=== PATIENT | female | born 1950 | race Caucasian/White ===

== ENCOUNTER 2025-05-26 10:01 | Outpatient (AMB) | payer OTHER, SELFPAY ==
--- NOTE | 2025-05-26 10:03 | MHC.PC.OV ---
Vital Signs 05/26/25 10:05 Height 5 ft 4 in Weight 145 lb 8 oz BMI 25.0 BP 118/70 Pulse 89 Pulse Oximetry (%) 98 Oxygen Delivery Method Room Air Intake Visit Reasons: establish care Hotel Services Supervisor Required: No Accompanied by: Self / Same As Patient Allergies Penicillins Allergy (Mild, Verified 05/26/25 10:48) Unknown Medication List - Last Reconciled 05/26/25 by Sammie Matta PA-C aspirin 81 mg PO DAILY calcium carbonate-vitamin D3 600 mg-10 mcg (400 unit) (Calcium 600 with Vitamin D3) tabs PO ezetimibe (Zetia) 10 mg PO DAILY hydrochlorothiazide 12.5 mg PO DAILY lisinopril 5 mg PO DAILY rosuvastatin 40 mg PO DAILY sertraline 50 mg PO DAILY Tobacco use date assessed: 05/26/25 Fall risk assessment: No Falls in past year Last assessed Fall Risk: 05/26/25 Dental Screening Dental Screen Date: 05/26/25 Did you have a dental visit in the last 12 months?: Yes Did you have a dental problem in the last 6 months where you did not have access to dental care?: No Was dental information given to patient?: Patient has dentist HPI establish care HPI Details 75 year old female with past medial history of anxiety, hyperlipidemia, hypertension, liver cyst, osteopenia, vitamin D deficiency coming to the office for the first time. Presenting with a wellness check and management of chronic conditions. Managed with rosuvastatin 40 mg and Zetia 10 mg. HTN Managed with lisinopril 5 mg and hydrochlorothiazide 12.5 mg. Anxiety Managed with sertraline 50 mg, resumed after increased stress during holidays. mammogram: 2024 UTD DEXA: 2024 UTD eye exam: due referral placed colonoscopy: due next year 2025 PENDING SALE TO [facility] Surgical History H/O unilateral oophorectomy Family History Father Renal cancer Mother Heart disease Maternal Aunt Heart disease Social History Housing: Apartment Patient Tobacco Use Status: Never used Tobacco e-Cigarette/Vaping Use: Never Used Second Hand Smoke Exposure: No service: No Current occupational status: retired Questionnaire PHQ-9 Over the last 2 weeks, how often have you been bothered by any of the following problems? 1. Little interest or pleasure in doing things: not at all 2. Feeling down, depressed, or hopeless: not at all 3. Trouble falling or staying asleep, or sleeping too much: not at all 4. Feeling tired or having little energy: not at all 5. Poor appetite or overeating: not at all 6. Feeling bad about yourself - or that you are a failure or have let yourself or your family down: not at all 7. Trouble concentrating on things, such as reading the newspaper or watching television: not at all 8. Moving or speaking so slowly that other people could have noticed. Or the opposite - being so fidgety or restless that you have been moving around a lot more than usual: not at all 9. Thoughts that you would be better off or of hurting yourself in some way: not at all Total score: 0 Depression Screening Interpretation: Negative Depression Screening Done: Yes 05468 - PHQ-9 Billing: Yes Source: Developed by Drs. Frederic Valderrama, Elena Maldonado, Kyrie Arce and colleagues, with an educational jeremy from [employer]. Thrive Questionnaire Date Thrive assessed: 05/26/25 I am a: Patient What is your living situation today?: I have a steady place to live Within the past 12 months, did the food you bought not last and you didn't have the money to get more?: Never true Within the past 12 months, did you worry whether your food would run out before you got money to buy more?: Never true Do you have trouble paying for medicines?: No Do you have trouble getting transportation to medical appointments?: No Do you have trouble paying your heating and electricity bill?: No Do you have trouble taking care of your child, family member or friend?: No Do you have trouble with day-to-day activities such as bathing, preparing meals, shopping, managing finances, etc.?: No Are you currently unemployed and looking for a job?: No Are you interested in more education?: No Please select the resources that you would like help with: None Currently or been in a relationship where the following occur: No concerns reported THRIVE Score: 0 AUDIT C Alcohol Use Questionnaire (AUDIT-C) 1. How often do you have a drink containing alcohol?: 2-3 times a week 2. How many drinks containing alcohol do you have on a typical day when you are drinking?: 1 or 2 3. How often do you have six or more drinks on one occasion?: Never Total Score: 3 ESTEPHANIA-7 AMB Questionnaire ESTEPHANIA-7 Date ESTEPHANIA - 7 assessed: 05/26/25 Feeling nervous, anxious, or on edge: 0 = Not at all Not being able to stop or control worryin = Not at all Worrying too much about different things: 0 = Not at all Trouble relaxin = Not at all Being so restless that it is hard to sit still: 0 = Not at all Becoming easily annoyed or irritable: 0 = Not at all Feeling afraid as if something awful might happen: 0 = Not at all Total ESTEPHANIA-7 score (0-4 normal; 5-9 mild; 10-14 moderate; 15-21 severe): 0 Source: Developed by Drs. Frederic Valderrama, Elena Maldonado, Kyrie Arce and colleagues, with an educational jeremy from [employer]. ESTEPHANIA-7 Assessment Billing ESTEPHANIA-7 Assessment Tool: ESTEPHANIA-7 Assessment 20811 Review of Systems Const Denies body aches, Denies fatigue, Denies fever(s), Denies frequent falls, Denies headache(s) and Denies weakness Eyes Reports no additional complaints and Denies change in vision ENT Denies dysphagia, Denies dizziness, Denies facial pain, Denies headache(s), Denies nasal congestion and Denies odynophagia Card Denies chest pain, Denies syncope, Denies irregular heart rhythm, Denies leg edema, Denies lightheadedness and Denies dyspnea Resp Denies cough and Denies dyspnea GI Denies constipation, Denies dysphagia, Denies dyspepsia, Denies diarrhea, Denies nausea, Denies odynophagia and Denies vomiting Denies urinary frequency, Denies dysuria, Denies urinary hesitancy and Denies urinary urgency Musc Denies back pain and Denies myalgias Skin/Breast Reports system reviewed and no additional complaints, except as documented Neuro Denies dizziness, Denies syncope, Denies frequent falls, Denies headache(s) and Denies weakness Psych Reports no additional complaints Endo Denies fatigue Physical exam (Primary Care) Vital Signs: Last Vital Signs Pulse 89 05/26/25 10:05 BP 118/70 05/26/25 10:05 Pulse Ox 98 05/26/25 10:05 Oxygen Delivery Method Room Air 05/26/25 10:05 BMI result Body Mass Index 25.0 Tobacco/Smoking Status: Tobacco use Status Tobacco use date assessed 05/26/25 05/26/25 10:11 Patient Tobacco Use Status Never used Tobacco 05/26/25 10:11 e-Cigarette/Vaping Use Never Used 05/26/25 10:11 PHQ-9: PHQ-9 Score PHQ-9: Total score 0 05/26/25 13:13 Depression Screening Interpretation: Negative Thrive Assessment: Date of Thrive Assessment Date Thrive assessed 05/26/25 05/26/25 10:11 Currently or been in a relationship where the following occur: No concerns reported Const General: cooperative, healthy appearing, comfortable and no acute distress Orientation/consciousness: patient oriented x3 HENMT Head: Yes normocephalic Ears: hearing grossly normal bilaterally General nose exam: Normal external nose present Eyes General: appearance normal, both eyes and all related structures Conjunctivae: conjunctivae normal Neck Neck: Yes full ROM and Yes no lymphadenopathy Resp Effort & Inspection: normal respiratory effort Auscultation: clear to auscultation bilaterally, no crackles, no rales, no rhonchi and no wheezes Cardio Rate: regular rate Rhythm: regular rhythm Skin General skin exam: no rashes or lesions noted Neuro General: patient oriented x3 Gait exam (Neuro): Normal gait present Extrem General: Yes normal to inspection, Yes full ROM and No edema Psych Affect: normal affect Attitude: cooperative Insight: Good insight present (Psych) Judgement: Good judgement present (Psych) Coding Level of Care Code Est Pt Level 4 (06335) Diagnoses Hypercholesterolemia E78.00 Primary hypertension I10 Hypertension type: primary hypertension Vitamin D deficiency E55.9 Anxiety F41.9 Additional Codes ESTEPHANIA-7 Assessment Billing - ESTEPHANIA-7 Assessment Tool: ESTEPHANIA-7 Assessment 80877 ([id number]) PHQ-9 - 03574 - PHQ-9 Billing: Yes ([id number]) Assessment & Plan Assessment & Plan (1) Hypercholesterolemia: Code(s): E78.00 - Pure hypercholesterolemia, unspecified Category: Medical Plan: Avoid foods that are high in cholesterol such as red meat, fried foods, eggs and baked goods. Triglyceride goal of less than 150 and LDL goal of less than 100. Continue on Zetia 10 and rosuvastatin 40 (2) Hypertension: Code(s): I10 - Essential (primary) hypertension Category: Medical Qualifiers: Hypertension type: primary hypertension Qualified Code(s): I10 - Essential (primary) hypertension Plan: Continue on current blood pressure medication. Avoid salt intake and encourage healthy diet and regular exercise. (3) Vitamin D deficiency: Code(s): E55.9 - Vitamin D deficiency, unspecified Category: Medical Plan: Continue on vitamin-D supplementation and ordered for updated blood work. (4) Anxiety: Code(s): F41.9 - Anxiety disorder, unspecified Category: Medical Plan: Continue on sertraline 50 feels her symptoms are well managed at this time. Plan The patient will continue her current medication regimen for hyperlipidemia, including rosuvastatin 40 mg and Zetia 10 mg. If lipid levels remain uncontrolled, further adjustments may be considered. For hypertension, the patient will maintain lisinopril 5 mg and hydrochlorothiazide 12.5 mg. Anxiety management will continue with sertraline 50 mg, and the patient is advised to monitor stress levels, especially during holidays. Constipation will be managed with [id number] stool softeners, and the patient is encouraged to increase water and fiber intake. Vitamin D deficiency will be addressed with continued calcium 600 mg with vitamin D supplementation. Preventative care measures include considering a stool test for colon cancer screening as an alternative to colonoscopy, given the patient's age and previous negative results. This note was constructed using voice recognition software. While every effort has been made to ensure accuracy and forest pathologist, still areas may have been included sometimes these areas may affect the content or meeting of the given symptoms. Total time spent caring for the patient today was 30 minutes. This includes time spent before the visit reviewing the chart, time spent during the visit, and time spent after the visit and documentation. Patient was informed and verbally consented to the use of an ambient scribe for clinic note documentation during this visit. Orders: Referrals Optometry Referral Z00.00 - Encounter for general adult medical examination without abnormal findings Medications: New docusate sodium (Colace) 100 mg PO DAILY 30 caps 2RF
[2025-05-26 10:05] VITALS: BP 118/70; PULSE 89; O2SAT 98; BMI 25.0
--- OUTSIDE RECORDS SUMMARY | 2025-05-26 10:27 | XMS_ITS | Data Portability ---
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 *NO LOCAL PCP. [email or web address] Not available 10/17/2024 15:41:32 12/26/2024 12/26/2024 Established patient. PCP IS DR. TRIPP. Not available 12/27/2024 01:46:56 Plan of Treatment Reminders Order Date Submit Date Provider Last Modified By Organization Details Last Modified Time Details Appointments None recorded. Lab None recorded. Referral None recorded. Procedures None recorded. Surgeries None recorded. Imaging XR, chest, 2 view - ONSET IN 2024. SIGN WORSENING COUGH SINCE. LUNG SOUNDS: WHEEZING, AND CONGESTION . XRAY TO R/O PNEUMONIA. 2024 025 [facility], [facility], All Locations, [place], [address], 15:27:06 XR, foot, 3 or more view - INITIALLY THOUGHT SHE HAD PLANTAR FASCIITIS. NORMALLY WALKS 4 MILES PER DAY. STARTED STRETCHING EXERCISES. ICE/ IBUPROFEN. DOING THIS SINCE FRIDAY. ELEVATION. *NOT SLEEPING WELL R/T PAIN. NORMALLY SYMPTOMS LAST 1 WEEK. NOW FOOT IS FEELING WARM, POSTERIOR AND MEDIAL ARCH, MEDIAL MALLEOLUS. NEVER DIAGNOSED WITH GOUT. 2023 024 [facility], [facility], All Locations, [place], [address], 4 16:41:18 Medication Orders benzonatat e 200 mg capsule 2024 025 [facility], [address] [place] [address], [id number], 5 15:15:29 prednisone 10 mg tablet 2024 025 [facility], [address] [place] [address], [address], 5 15:15:26 albuterol sulfate HFA 90 mcg/actuat ion aerosol inhaler 2024 025 [facility], [address] [place] [address], [id number], 5 15:15:26 doxycyclin e hyclate 100 mg capsule 2024 025 [facility], [address] [place] [address], [address], 5 15:15:25 Zithromax Z-Bryan 250 mg tablet 2024 025 [facility], [address] [place] [address], [address], 5 14:08:32 Medrol (Bryan) 4 mg tablets in a dose pack 2024 025 [facility], [address] [place] [address], [id number], 5 14:08:28 doxycyclin e hyclate 100 mg capsule 2023 024 [facility], [address] [place], [address], 4 09:31:33 indomethac in 50 mg capsule 2023 024 [facility], [address] [place], [address], 4 12:02:38 Mucinex 1,200 mg tablet, extended release [address] [facility], [address] [place], [address], 4 09:31:39 benzonatat e 200 mg capsule 2018 019 [facility], [address] [place], [address], 13:49:15 Patient TargetsNo targets recorded. Patient Instructions Encounter Date Encounter Id Patient Instructions Last Modified By Organization Details Last Modified Time 12/07/2018 [id number] upper respirator y infection (cold): care instructions joy Not available 12/07/2018 16:38:22 History and exam consistent with viral upper respiratory infection. Lungs clear, vitals stable. Medication discussed. She will rest, stay hydrated, and will return if symptoms persist or new symptoms develop. She states understanding and agrees with this plan. [email or web address] Not available 12/07/2018 16:57:59 10/16/2024 [id number] Encouraged familia nt to establish with primary care locally. [email or web address] Not available 10/17/2024 16:03:33 Patient voiced understanding of diagnosis, and treatment plan. *Stressed to obtain further medical care for any worsening symptoms. Not available 10/16/2024 14:03:49 10/25/2024 [id number] We discussed you r recent foot infection and gout: - Your foot infection and gout have improved after taking antibiotics and pain medication. - Continue wearing orthotics in your shoes and ensure you have good sneakers to support your feet. - If you experience any issues with your right foot, please let me know. We discussed your overall health and primary care management: - You have a primary care physician in [place] who manages your health, including regular mammograms and cholesterol checks every six months. - Continue following up with your primary care physician in [place] for your scheduled appointments and any other health concerns. [email or web address] Not available 10/25/2024 09:43:37 11/22/2024 [id number] upper respirator y infection (cold): care instructions Not available 11/22/2024 08:05:37 We discussed you r recent illness: - Your symptoms are likely due to a viral infection, which typically lasts 7-10 days. However, since you haven't improved after a week, I will prescribe a Z-Bryan (antibiotic) at your request and a Medrol Dosepak (steroid) to help reduce inflammation and speed up your recovery. - Be aware that the Z-Bryan can cause arrhythmias, especially in individuals over 65. Monitor your heart rate closely and seek immediate medical attention if you notice any irregularities. - The Medrol Dosepak may cause increased hunger, thirst, and urination, but these side effects should subside once you complete the medication. - You can continue taking [id number]-mja-emivkpj medications like Mucinex, DayQuil, NyQuil, and cough drops to manage your symptoms. - It's important to stay active and avoid prolonged bed rest to prevent the development of pneumonia. Try to move around and take deep breaths regularly. Not available 11/22/2024 08:04:37 12/26/2024 [id number] pneumonia: care instructions [email or web address] Not available 12/26/2024 15:15:19 bronchitis: care instructions [email or web address] Not available 12/26/2024 14:36:16 Patient is encouraged to follow-up with PCP for all primary care, and chronic disease management. Patient is also encouraged to contact primary care for initial directive for acute illness management, and utilize the walk-in clinic, when the PCP is not available. Not available 12/27/2024 01:49:04 We discussed you r severe cough, shortness of breath, and possible pneumonia: - A chest x-ray was performed during your visit to evaluate for pneumonia. I will call you with the radiologist's report once it is available. - You received a breathing treatment during the visit, which helped improve your symptoms. This indicates that a rescue inhaler will likely be beneficial for you. - I prescribed the following medications to address your symptoms: - Antibiotic: To treat suspected pneumonia. Please start this medication as soon as possible. Your pharmacy has been instructed to expedite the prescription. - Steroids: To reduce inflammation and help with congestion. - Rescue inhaler (Albuterol): Use every 4-6 hours as needed, especially in the first few days. Instructions for use: - Remove the cap and place your mouth around the short end of the inhaler, creating a good seal. - Press the top of the inhaler while taking a deep breath in. Hold your breath for 3-5 seconds to allow the medication to reach your lungs. - Wait about a minute before taking a second puff. - Keep the inhaler with you, especially if you experience shortness of breath or severe coughing episodes. - Cough medication: To help manage your symptoms. - You are allergic to penicillin, so I prescribed an alternative antibiotic. We discussed precautions and follow-up: - You may be contagious, as community-acquired pneumonia can spread to others. Avoid close contact with others until you have been on antibiotics for at least 2-3 days and your symptoms improve. - If your symptoms worsen, such as increased shortness of breath, fever, chest pain, or flu-like symptoms, please seek immediate medical care. - I expect your symptoms to improve with this treatment plan. If you do not notice improvement or if you have concerns, please contact our office. Your prescriptions have been sent to [facility] pharmacy. Please pick them up and start them today. If you have any questions or need further assistance, let us know. [email or web address] Not available 12/27/2024 01:50:31 Reason for Referral None Reported. Results Created Date Observation Date Name Description Value Unit Range Abnormal Flag Note LastModifiedBy Organization Detail LastModifiedTime 10/16/20 24 10/16/2024 XR, foot, 3 or more view INDICA TION: M79.67 2 Pain in left foot. Foot pain for 4 days. TECHNI QUE: FOOT 3V (COMPL ETE) LEFT. COMPAR SHELBY: None FINDIN GS: Chroni c healed fractu re of the shaft of the fifth metata rsal bone. No acute fractu re or erosiv e change s are noted. Mild to modera te multif ocal joint space narrow ing/os teoart hrosis . Modera te planta r calcan eal spur. If patien t's sympto ms persis t or worsen , consid er MRI IMPRES PATRICK: See above discus patrick. Electr onical ly Signed By: Eddie Hobson D.O., Board Certif ied Radiol ogist Sign Date: [facility] All Locations, [place], [address], 10/16/2024 18:14:58 12/26/19 25 12/26/2024 XR, chest , 2 view INDICA TION: J20.9 Acute bronch itis, unspec ified. Progre ssive cough. Wheezi ng and conges tion. TECHNI QUE: CHEST 2V. COMPAR SHELBY: None FINDIN GS: Heart medias tinum and pulmon ayan vascul arity are normal . Acute parenc hymal infilt rates are not seen. There is minima l athero sclero sis of the thorac ic aortic arch. There are minima l bibasi lar infilt rates. Osseou s struct ures demons trates modera tely advanc ed degene rative disc space narrow ing degene rative spurri ng throug hout the thorac ic spine. IMPRES PATRICK: Minima l bibasi lar infilt rate relate d either scarri ng or atelec tasis and/or develo ping pneumo david. Note: The [employer] an Cancer Societ y, CMS and the [place] preven tative servic es task force now approv e CT low-do se chest screen ing in the follow ing patien ts: - Age 55-77 who curren tly smoke or who have quit within the last 15 years - Asympt omatic patien ts with a 30-pac k-year histor y of smokin g Electr onical ly Signed By: Oj alcaraz D.O., Board Certif ied Radiol ogist Sign Date: [email or web address] [place], [place] [address] All Locations, [place], [address], 12/26/2024 16:46:32 Result Notes Documentation Provider Name and Address Organization Details Recorded Time Xr, Foot, 3 Or More View : INDICATION: M79.672 Pain in left foot. Foot pain for 4 days. TECHNIQUE: FOOT 3V (COMPLETE) LEFT. COMPARISON: None FINDINGS: Chronic healed fracture of the shaft of the fifth metatarsal bone. No acute fracture or erosive changes are noted. Mild to moderate multifocal joint space narrowing/osteoarthrosis. Moderate plantar calcaneal spur. If patient's symptoms persist or worsen, consider MRI IMPRESSION: See above discussion. Electronically Signed By: Robin Hobson D.O., Board Certified Radiologist Sign Date: 16-OCT-24 [facility]ha [facility]avier [place] [facility], [facility] 10/16/2024 18:14:58 Xr, Chest, 2 View : INDICATION: J20.9 Acute bronchitis, unspecified. Progressive cough. Wheezing and congestion. TECHNIQUE: CHEST 2V. COMPARISON: None FINDINGS: Heart mediastinum and pulmonary vascularity are normal. Acute parenchymal infiltrates are not seen. There is minimal atherosclerosis of the thoracic aortic arch. There are minimal bibasilar infiltrates. Osseous structures demonstrates moderately advanced degenerative disc space narrowing degenerative spurring throughout the thoracic spine. IMPRESSION: Minimal bibasilar infiltrate related either scarring or atelectasis and/or developing pneumonia. Note: The [employer], CMS and the [place] preventative services task force now approve CT low-dose chest screening in the following patients: - Age 55-77 who currently smoke or who have quit within the last 15 years - Asymptomatic patients with a [id number]-[id number] history of smoking Electronically Signed By: Oj Khan D.O., Board Certified Radiologist Sign Date: 26-DEC-24 Grace xavier [place] - [facility], [facility] 12/26/2024 16:46:32 Procedures Surgical History Date Name Laterality Status Provider Name and Address Organization Details Recorded Time 5 Nebulizer treatment completed LOLITA Goncalves [address] [facility] [address], [place], [address], [facility] - [facility], [facility] 12/27/2024 01:49:17 4 Date of Last Mammogram completed [place] [facility] 10/25/2024 09:25:55 Colonoscopy completed [place] [facility] 10/25/2024 09:25:30 Mammogram Screening completed [place] [facility] [facility] 10/25/2024 09:26:05 Imaging Results None recorded. Procedure Notes None recorded. Medical Equipment None Reported. Allergies Allergen ID Allergen Name Allergen Category Reaction Reaction Severity Criticality Documentation Date Start Date Code Code System Note Provider Name and Address Organization Details Recorded Time 693254 Product containin g penicilli n (product) medicatio n respirato ry distress Not available Not available 12/07/2018 15804 8001 SNOMED Carmen Aicha [facility] 9 14:45:22 Medications Name Sig Start Date Stop Date Status Note LastModified by Organization Details LastModified Time prednisone 10 mg tablet 1 PO TID X 3 DAYS, BID X 3 DAYS. QD X 3 DAYS. 2024 active Not Available Not Available Not Avai lable doxycycline hyclate 100 mg capsule Take 1 capsule twice a day by oral route with meal(s) for 10 days. 2024 active Not Available Not Available Not Avai lable atorvastatin 10 mg tablet Take 1 tablet every day by oral route. active Not Available Not Available No t Available benzonatate 200 mg capsule Take 1 capsule 3 times a day by oral route as needed for 10 days. 2024 active Not Available Not Available Not Avai lable Medrol (Bryan) 4 mg tablets in a dose pack Take 1 dose pk by oral route for 6 days. 12/26 completed Not Available Not Available Not Available Zithromax Z-Bryan 250 mg tablet TAKE 2 TABLETS (500 MG) BY ORAL ROUTE ONCE DAILY FOR 1 DAY THEN 1 TABLET (250 MG) BY ORAL ROUTE ONCE DAILY FOR 4 DAYS 12/26 completed Not Available Not Available Not Available benzonatate 100 mg capsule 12/07 completed Not Available Not Available Not Available indomethacin 50 mg capsule Take 1 capsule 3 times a day by oral route with meal(s) for 10 days. 10/25 completed Not Available Not Available Not Available codeine 10 mg-guaifenes in 100 mg/5 mL oral liquid 12/07 completed Not Available Not Available Not Available lisinopril 5 mg tablet Take 1 tablet every day by oral route. active Not Available Not Available No t Available hydrochlorot hiazide 25 mg tablet Take 1 tablet every day by oral route for 100 days. active Not Available Not Available No t Available albuterol sulfate HFA 90 mcg/actuatio n aerosol inhaler 2 PUFFS Q 4-6 HOURS PRN RESCUE INHALER. 2024 active Not Available Not Available Not Avai lable sertraline 50 mg tablet Take 1 tablet every day by oral route for 90 days. active Not Available Not Available No t Available Tylenol 8 Hour 650 mg tablet,exten ded release Take 2 tablets every 8 hours by oral route. active Not Available Not Available No t Available rosuvastatin 10 mg tablet 10/16 completed Not Available Not Available Not Available rosuvastatin 40 mg tablet active Not Available Not Available Not Available aspirin active Not Available Not Avail able Not Available ibuprofen 10/16 completed Not Available Not Available Not Available Vitamin D active Not Available Not Kati ilable Not Available Mucinex 1,200 mg tablet, extended release Take 1 tablet every 12 hours by oral route. 10/25 completed Not Available Not Available Not Available Caltrate active Not Available Not Avai lable Not Available Vitals Date Recorded Body height Body mass index (BMI) Body weight Body temperature Heart rate Oxygen saturation Oxygen saturation in Arterial blood by Pulse oximetry Systolic And Diastolic Provider Name and Address Organization Details Last Updated DateTime 5 162.56 cm 24.5 kg/m2 91520.7 1 g 97.6 [degF] 96 /min 98 % 98 % 118/80 mm[Hg] Jimena Shea [place] - [facility], [facility] 5 07:33:32 Date Recorded Body weight Body mass index (BMI) Body height Body temperature Heart rate Respiratory rate Oxygen saturation Oxygen saturation in Arterial blood by Pulse oximetry Systolic And Diastolic Provider Name and Address Organization Details Last Updated DateTime 9 43103.7 6 g 26.1 kg/m2 162.56 cm 99.5 [degF] 83 /min 18 /min 98 % 98 % 120/78 mm[Hg] Carmen Holcomb [facility], [facility] 9 15:59:53 Date Recorded Body height Body mass index (BMI) Body weight Body temperature Heart rate Respiratory rate Oxygen saturation Oxygen saturation in Arterial blood by Pulse oximetry Systolic And Diastolic Provider Name and Address Organization Details Last Updated DateTime 5 162.56 cm 24.2 kg/m2 61075.8 1 g 98.7 [degF] 84 /min 18 /min 97 % 97 % 126/82 mm[Hg] Varsha Mg [facility], [facility] 5 14:12:54 Date Recorded Body weight Body mass index (BMI) Body height Body temperature Heart rate Respiratory rate Oxygen saturation Oxygen saturation in Arterial blood by Pulse oximetry Systolic And Diastolic Provider Name and Address Organization Details Last Updated DateTime 4 70619.5 9 g 27.1 kg/m2 162.56 cm 98.3 [degF] 84 /min 16 /min 98 % 98 % 128/84 mm[Hg] Varsha Mg [facility], [facility] 4 13:51:11 Date Recorded Body height Provider Name an d Address Organization Details Last Updated DateTime 10/25/2024 162.56 cm Carissa Gruber [facility], [facility] 10/25/2024 09:25:10 Date Recorded Respiratory rate Body mass index (BMI) Body weight Body temperature Heart rate Oxygen saturation Oxygen saturation in Arterial blood by Pulse oximetry Systolic And Diastolic Provider Name and Address Organization Details Last Updated DateTime 4 16 /min 24.4 kg/m2 67794.1 2 g 98 [degF] 66 /min 96 % 96 % 122/80 mm[Hg] Sherrill Shirley [facility], [facility] 4 09:31:06 Social History Question Answer Notes LastModified by Organizat ion Details LastModified Time Tobacco Smoking Status Never Smoker Carmen xavier [facility], [facility] 12/07/2018 14:51:07 Do You Have An Advance Directive? Yes [email or web address] Information not available 10/25/2024 Is Your Home Air Conditioned? Yes [email or web address] Information not available 10/25/2024 Do You Wear A Helmet When Biking? No Information not available 10/25/2024 Is Blood Transfusion Acceptable In An Emergency? Yes [email or web address] Information not available 10/25/2024 What Type Of Diet Are You Following? REGULAR [email or web address] Information not available 10/25/2024 Which Illicit Or Recreational Drugs Have You Used? NA Information not available 10/25/2024 What Is The Highest Grade Or Level Of School You Have Completed Or The Highest Degree You Have Received? [id number] [email or web address] Information not available 10/25/2024 Have There Been Any Changes To Your Family Or Social Situation? No [email or web address] Information not available 10/25/2024 Are There Any Guns Present In Your Home? No Information not available 10/25/2024 Where Do You Live? 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 Yes [email or web address] Information not available 10/25/2024 What Was The Date Of Your Most Recent Tobacco Screening? 10/25/2024 Information not available 10/25/2024 What Is Your Relationship Status? Domestic Partner [email or web address] Information not available 12/26/2024 Are You Sexually Active? Yes [email or web address] Information not available 10/25/2024 Do You Have Smoke And Carbon Monoxide Detectors In Your Home? Yes [email or web address] Information not available 10/25/2024 Are You Passively Exposed To Smoke? No [email or web address] Information not available 10/25/2024 Are There Any Smokers In Your House? No [email or web address] Information not available 10/25/2024 Do You Have Any Dietary Restrictions? No [email or web address] Information not available 10/25/2024 Sex: Female Functional Status Question Answer Note LastModified by Organizat ion Details LastModified Time What is your level of alcohol consumption? Moderate [email or web address] Information not available 10/25/2024 Do you or have you ever used smokeless tobacco? Never used smokeless tobacco [email or web address] Information not available 10/25/2024 Are you currently employed? No [email or web address] Information not available 10/25/2024 Have you been exposed to chemicals or toxins? No [email or web address] Information not available 10/25/2024 Do you have transportation difficulties? No [email or web address] Information not available 10/25/2024 Are you able to care for yourself? Yes [email or web address] Information n ot available 10/25/2024 What is your exercise level? Moderate [email or web address] Information not available 10/25/2024 Mental Status None recorded. Family History Relationship Description Onset Age of this Age Resolved Age Notes LastModified by Organization Details LastModified Time Unspecified Relation Malignant neoplastic disease [email or web address] Not available 2024 13:33:44 Unspecified Relation Heart disease [email or web address] Not available 2018 14:50:59 Mother Alzheimer's disease [email or web address] Not available 10/25 09:25:41 Mother Hypertensive disorder [email or web address] Not available 10/25 09:25:41 Mother Heart disease [email or web address] Not available 10/25 09:25:41 Medical History Condition Response Cancer (location) N Other N Gout N Thyroid Disease N Kidney Stones N Measles/Mumps N Emphysema/COPD N Sexually Transmitted Disease N Depression N Prostate Problems N Vascular Disease N Rash/Skin Condition N Amputation (location) N Parkinson's N Paralysis N Headaches/Migraines N Cardiac Pacemaker/defibrillator N Nerve Damage / Neuropathy N Arthritis N Sleep disorder/Insomnia N Heart disease / Heart Attack N Crohn's Disease N HIV/AIDS N Stroke/TIA N Colon Problems N High Cholesterol Y Serious Injuries N Kidney Disease N Memory Loss/Alzheimer's N Gallbladder disease N High blood pressure Y Congestive heart failure N Falls N Alcohol Overuse N Blood Thinner Treatment N Hormone Replacement N Nervous Breakdown N Fuentes's Esophagus N Anemia N Urinary Problems N Colon Polyps N Gastritis N Hospitalizations (other than operations) N Back pain N Diabetes N Rheumatic Fever N Bleeding Disorder N Cardiac Arrhythmias /irregular heart rat e N Osteopenia/Osteoporosis N Anxiety/Stress N Asthma N Vision Problems N Erectile / Sexual Dysfunction N Ostomies (location) N Seizures N Jaundice N Sleep Apnea N Hepatitis N Cirrhosis N GERD/Ulcer N Chicken Pox N Allergies (other than meds) N Gynecological History Statement/Question Response Menses Monthly N STIs/STDs N If Post Menopausal, Age at Menopause Na Date of Last Mammogram 2024 Age at First Child 23 Obstetrics History GPAL:G 0 P 0 0 0 0 Immunizations Vaccine Type Date Status Note Provider Nam e and Address Organization Details Recorded Time COVID-19, mRNA, LNP-S, PF, 30 mcg/0.3 mL dose 01/10/2021 completed Varsha xavier [facility], [facility] 10/16/2024 13:57:46 COVID-19, mRNA, LNP-S, PF, 30 mcg/0.3 mL dose 01/31/2021 completed Varsha xavier [facility], [facility] 10/16/2024 13:57:46 COVID-19, mRNA, LNP-S, PF, 30 mcg/0.3 mL dose, peggy-sucrose 02/21/2022 completed Varsha xavier [facility], [facility] 10/16/2024 13:57:46 Past Encounters Encounter ID Performer Location Encounter Start Date Encounter Closed Date Diagnosis/Indication Diagnosis SNOMED-CT Code Diagnosis ICD10 Code Diagnosis Note [id number] LOLITA Martines [facility] [address] [place] [address] 12/07/2018 14:35:00 12/07/2018 18:45:28 Upper respiratory infection [id number] J06.9 Diarrhea [id number] R19.7 Food related; states several other people that ate with her last night also have diarrhea today [id number] LOLITA Goncalves [facility] [address] [place] [address] 10/16/2024 13:12:35 10/17/2024 20:38:44 Pain in left foot [id number] M79.672 Acute. Incomplete control. Initial treatment. Xray LEFT FOOT: FINDINGS: Chronic healed fracture of the shaft of the fifth metatarsal bone. No acute fracture or erosive changes are noted. Mild to moderate multifocal joint space narrowing/ osteoarthr osis. Moderate plantar calcaneal spur. If patient's symptoms persist or worsen, consider MRI IMPRESSION : See above discussion . Rx for INDOMETHAC IN. Follow-up with PCP, or if can't get in with PCP, at the walk-in if no better or ER if any worse, or any red flag symptoms. Patient voiced understand ing and agreement with treatment plan. Cellulitis of left foot [id number] L03.116 Acute. Incomplete control. Initial treatment. *TREAT A CELLULITIS VS. PLANTAR FASCIITIS, VS GOUT/ ARTHRITIS. Rx for a oral antibiotic . Encouraged good po fluid intake. Follow-up at the walk-in if no better or ER if any worse, or any red flag symptoms. Patient voiced understand ing and agreement with treatment plan. *CONTACTED PT 10/17/24 AT 3:45 PM, PT DOING SIGNFICANT LY BETTER. [id number] MD PAIGE Miguel [facility] [address] [place] [address] 10/25/2024 09:19:11 10/25/2024 09:43:38 Infection of foot [id number] L08.9 - Patient presented with a left foot infection, which was treated with antibiotic s and pain medication .- The infection has resolved, and the patient reports significan t improvemen t with the ability to walk without pain.- Educated the patient on the importance of completing the full course of antibiotic s and monitoring for any signs of recurrence , such as redness, swelling, or increased pain.- Advised to maintain good foot hygiene and wear appropriat e footwear to prevent future infections . Gout [id number] M10.9 - Patient experience d an acute gout flare in the left foot, characteri zed by swelling, redness, and heat.- X-ray revealed an old fracture in the toe, which the patient was previously unaware of.- The gout flare has resolved following treatment with pain medication .- Educated the patient on dietary modificati ons to prevent future gout flares, including reducing intake of purine-april h foods and alcohol.- Advised to stay hydrated and maintain a healthy weight.- Recommende d follow-up with primary care physician in [facility] for ongoing management and monitoring of gout. [id number] MD PAIGE Silva [facility] [address] [place] [address] 11/22/2024 07:13:19 11/22/2024 13:35:13 Acute upper respiratory infection [id number] J06.9 - Symptoms include scratchy throat, rhinorrhea , sneezing, and a productive cough that worsens when supine. Patient also reports headache and significan t fatigue.- No fever reported. No recent exposure to sick individual s, but recent travel via airplane could be a contributi ng factor.- Physical examinatio n reveals coarse breath sounds without rhonchi, indicating inflammati on.- Discussed the viral nature of most upper respirator y infections , which typically resolve within 7 to 10 days.- Educated patient on the importance of ambulation to prevent complicati ons such as pneumonia. - Due to persistent symptoms and patient discomfort , prescribed Azithromyc in (Z-Bryan) and a Medrol Dosepak (methylpre dnisolone) to address potential bacterial superinfec tion and reduce inflammati on.- Advised patient of potential side effects of the Medrol Dosepak, including increased hunger, thirst, and urination, which should subside after completion of the medication .- Instructed patient to monitor for any signs of arrhythmia due to the Z-Bryan, especially given her age, and to seek immediate medical attention if such symptoms occur.- Patient to continue over-the-c ounter medication s (Mucinex, DayQuil, NyQuil, cough drops) as needed for symptomati c relief.- Prescripti ons sent to [facility] pharmacy.- Patient understand s and agrees with the treatment plan. [id number] LOLITA Goncalves [facility] [address] [place] [address] 12/26/2024 13:26:45 12/27/2024 06:35:15 Acute bronchitis [id number] J20.9 ACUTE. INCOMPLETE CONTROL. INITIAL EVALUATION . ORDER FOR A STAT CHEST XRAY: FINDINGS: Heart mediastinu m and pulmonary vascularit y are normal. Acute parenchyma l infiltrate s are not seen. There is minimal atheroscle rosis of the thoracic aortic arch. There are minimal bibasilar infiltrate s. Osseous structures demonstrat es moderately advanced degenerati ve disc space narrowing degenerati ve spurring throughout the thoracic spine. IMPRESSION : Minimal bibasilar infiltrate related either scarring or atelectasi s and/or developing pneumonia. Pneumonia [id number] J18. 9 Acute. Worsening. Subsequent treatment. *UNDIAGNOS ED NEW PROBLEM WITH UNCERTAIN PROGNOSIS. Rx for a oral antibiotic and benzonatat e as needed for cough. Rx for a steroid taper. Rx for a rescue inhaler. Encouraged good po fluid intake. Follow-up with PCP, or if can't get in with PCP, at the walk-in if no better or ER if any worse, or any red flag symptoms. Patient voiced understand ing and agreement with treatment plan. Health Concerns Section Related Observation LastModified by Organization Detai ls LastModified Time None Recorded Concern Status LastModified by Organization Details LastModified Time None Recorded Advance Directives Directive Y: Payers Insurance Date Sequence Insurance Name Policy Number Policy Enriquez Covered Member ID Enriquez Member ID Guarantor Name 03/02/2025 1 [facility] (MEDICARE REPLACEMENT/ ADVANTAGE - PPO) [id number] Norma Ladi [facility] [id number] Norma [facility] 10/22/2024 3 [facility] (MEDICARE REPLACEMENT/ ADVANTAGE - HMO) Norma Ladi Lorenzana [id number] Norma [facility] 10/25/2024 2 [place] Norma Ladi Lorenzana [id number] Norma Lorenzana 12/12/2024 2 [employer] (MEDICARE SUPPLEMENT) Norma [facility] [id number] Norma [facility] Notes Date Note Type Note Provider Name and Address Organization Details Recorded Time 12/07/2018 text/html Patient presents to the office with concern for 7 days of dry cough and headache. She also had a few episodes of diarrhea yesterday and today, but she thinks that is from a potluck she attended yesterday. Has been taking nyquil and dayquil for coughing. No fever at home, has had a few chills. Her grandson has been sick as well. Sarahi Rivera, RE[employer]IGERATION LEAD [address], [place], [address], [facility] - [facility], [facility] 12/07/2018 16:58:57 10/16/2024 text/html Lower Body PainReported bypatient.Reason for visit:acute complaint; INITIALLY THOUGHT SHE HAD PLANTAR FASCIITIS. NORMALLY WALKS 4 MILES PER DAY. STARTED STRETCHING EXERCISES. ICE/ IBUPROFEN. DOING THIS SINCE FRIDAY. ELEVATION. *NOT SLEEPING WELL R/T PAIN. NORMALLY SYMPTOMS LAST 1 WEEK. NOW FOOT IS FEELING WARM. Location:L foot Quality:dull/achy Severity:unchanged Duration:constant Onset/Timing:gradua l Context:NO ACUTE INJURY, HX OF PLANTAR FASCIITIS SYMPTOMS IN THE PAST. Alleviating Factors:nothing Aggravating Factors:movement/po sitioning;walking;w eight bearing Associated Symptoms:denies fever; denies weak limbs; denies numbness of the legs/feet; denies tingling New Patient. Pt c/o left foot pain x's 4 days. Pt reports swelling, and states this is red, hot and tender to the touch. Pt has used RICE, voltaren gel, cbd cream, tylenol, ibuprofen. Pt states she has a hx of plantar fasciitis. Pt googled sxs of gout but states as she only drinks wine LOLITA Goncalves [address], [place], [address], [facility] 10/17/2024 16:04:07 10/25/2024 text/html The patient is a 74-year-old female presenting for follow-up after a recent episode of left foot pain and swelling. The patient reports a recent episode of left foot pain and swelling that began on a Friday morning, rendering her unable to walk. She initially attributed the symptoms to plantar fasciitis, a condition she experiences every other year while in [place], but noted that this episode was unusual due to the significant swelling, erythema, and heat. She attempted self-treatment with exercises and ibuprofen, but her friends advised her to seek medical attention due to the severity of the swelling and erythema. Upon evaluation, she was diagnosed with an infection, gout, and a heel spur. An X-ray revealed an old fracture in her toe, which she was previously unaware of. She was prescribed antibiotics and pain medication, which she reports resolved her symptoms by the next day, allowing her to resume walking. She experienced bloating and nausea as side effects from the medication, but these symptoms resolved after completing the course. The patient is currently asymptomatic and has resumed her routine of walking 2 miles daily. She is using orthotics and has ordered new sneakers to ensure proper foot support. She spends 6 months of the year in [place] and the remaining time in [place], where she has a primary care physician. She has a mammogram scheduled and undergoes cholesterol checks every 6 months. Omkar Tripp MD [address], [place], [address], [facility], [facility] 10/25/2024 09:46:34 11/22/2024 text/html The patient is a 74-year-old female with a history of HTN, HLD, and depression, presenting with URI symptoms. The patient reports URI symptoms that began after returning from a trip to [place] on Friday. Initial symptoms included a scratchy throat, which progressed to rhinorrhea, sneezing, and a cough. The cough is described as deep and is exacerbated when lying down. She has been taking Mucinex, DayQuil, NyQuil, and cough drops without improvement. She denies fever, but notes myalgias and cephalalgia today. She reports significant fatigue, stating she has been sleeping excessively and feels miserable. She has not been tested for influenza or COVID-19 and denies known sick contacts, but suspects she may have contracted the illness during air travel. She has a known allergy to penicillin and recalls a previous similar illness that responded well to a Z-Bryan. She is currently taking vitamin D, calcitrate, aspirin, Tylenol, atorvastatin, sertraline, hydrochlorothiazide , and lisinopril. She denies any cardiac history. RICARDO FLEMING [address], [place], [address], [facility], [facility] 11/22/2024 08:05:55 12/26/2024 text/html Established patient. Pt c/o cough since 11/22/24. Pt states she was seen by Nitza 11/22/24 and told she had a viral infection. [facility] did send a zpak and MDP. However, pt states she did not know that was being sent and never took meds. Pt has used multiple cough/cold meds and states nothing helps. I'm using a new note-taking tool today, which will record our visit, take notes for me, and help me focus more on you while we're talking. Is that ok with you! The patient is a 74-year-old female presenting with a persistent cough. The patient was seen on November 22 for a cough and was advised that it was viral and would run its course. She was instructed to continue taking Mucinex, Dayquil, and Nyquil, which she has been doing. However, the cough has worsened since then. She denies any history of lung problems, fever, or chills since the last visit. She reports feeling extremely fatigued due to the constant coughing and has no energy. She has been trying to walk, but the cough has prevented her from doing so for the past three days. She denies rhinorrhea or sinus congestion, but notes that she has to blow her nose when she coughs. She reports some post-nasal drainage, particularly in the morning. She also reports dyspnea, but denies chest pain or pressure, cephalalgia, or dizziness. She is allergic to penicillin. Sabina Lomax, REFRIGERATION LEAD [address], [place], [address], [facility] - [facility], [facility] 12/27/2024 01:51:56 OBGyn Episode No OBEpisode recorded.
== END 2025-05-26 11:11 | disposition home or self-care (01) ==
LOC: HO.HMCH 10:01
DX: E78.00 Pure hypercholesterolemia, unspecified (principal); I10 Essential (primary) hypertension; E55.9 Vitamin D deficiency, unspecified; F41.9 Anxiety disorder, unspecified

== ENCOUNTER → 2025-05-26 10:01 | Outpatient (BNVA) | payer OTHER, SELFPAY | DX: I10 Essential (primary) hypertension (principal); F41.9 Anxiety disorder, unspecified; E78.00 Pure hypercholesterolemia, unspecified; E55.9 Vitamin D deficiency, unspecified; Z79.899 Other long term (current) drug therapy | CPT/HCPCS: 96127 ==

== ENCOUNTER 2025-07-06 12:49 | Outpatient (AMB) | payer OTHER, SELFPAY ==
--- NOTE | 2025-07-06 13:07 | MHC.PC.OV ---
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: No Accompanied by: Self / Same As Patient Allergies Penicillins Allergy (Mild, Verified 07/06/25 13:15) Unknown Medication List - Last Reconciled 07/06/25 by Sammie Matta PA-C aspirin 81 mg PO DAILY bromfenac 0.07% (Prolensa) drps ophthalmic (eye) calcium carbonate-vitamin D3 600 mg-10 mcg (400 unit) (Calcium 600 with Vitamin D3) tabs PO docusate sodium (Colace) 100 mg PO DAILY ezetimibe (Zetia) 10 mg PO DAILY hydrochlorothiazide 12.5 mg PO DAILY lisinopril 5 mg PO DAILY rosuvastatin 40 mg PO DAILY sertraline 50 mg PO DAILY Tobacco use date assessed: 07/06/25 Fall risk assessment: No Falls in past year Last assessed Fall Risk: 07/06/25 Dental Screening Dental Screen Date: 07/06/25 Did you have a dental visit in the last 12 months?: No Did you have a dental problem in the last 6 months where you did not have access to dental care?: No Was dental information given to patient?: Patient has dentist HPI cataract Surgery 07/25 Dr Abarca-tamra comm HPI Details 75-year-old female with past medical history of hypercholesterolemia, hypertension, anxiety last seen 05/2025 coming in for preoperative visit. She is scheduled to have cataract surgery on the left eye with 07/25/2025 Hypertension: Blood pressure is well controlled at this time on hydrochlorothiazide and lisinopril Patient has no history of CVA, HI, CHF or DM. She has had surgery and anesthesia in the past without complications. [facility] Surgical History H/O unilateral oophorectomy Family History Father Renal cancer Mother Heart disease Maternal Aunt Heart disease Social History Housing: Apartment Patient Tobacco Use Status: Never used Tobacco e-Cigarette/Vaping Use: Never Used Second Hand Smoke Exposure: No service: No Current occupational status: retired Cognitive needs: No Hearing needs: No Vision needs: No Questionnaire PHQ-9 Over the last 2 weeks, how often have you been bothered by any of the following problems? 1. Little interest or pleasure in doing things: not at all 2. Feeling down, depressed, or hopeless: not at all 3. Trouble falling or staying asleep, or sleeping too much: not at all 4. Feeling tired or having little energy: not at all 5. Poor appetite or overeating: not at all 6. Feeling bad about yourself - or that you are a failure or have let yourself or your family down: not at all 7. Trouble concentrating on things, such as reading the newspaper or watching television: not at all 8. Moving or speaking so slowly that other people could have noticed. Or the opposite - being so fidgety or restless that you have been moving around a lot more than usual: not at all 9. Thoughts that you would be better off or of hurting yourself in some way: not at all Total score: 0 Depression Screening Interpretation: Negative Depression Screening Done: Yes Source: Developed by Drs. Frederic Valderrama, Elena Maldonado, Kyrie Arce and colleagues, with an educational jeremy from [employer]. Thrive Questionnaire Date Thrive assessed: 05/26/25 I am a: Patient What is your living situation today?: I have a steady place to live Within the past 12 months, did the food you bought not last and you didn't have the money to get more?: Never true Within the past 12 months, did you worry whether your food would run out before you got money to buy more?: Never true Do you have trouble paying for medicines?: No Do you have trouble getting transportation to medical appointments?: No Do you have trouble paying your heating and electricity bill?: No Do you have trouble taking care of your child, family member or friend?: No Do you have trouble with day-to-day activities such as bathing, preparing meals, shopping, managing finances, etc.?: No Are you currently unemployed and looking for a job?: No Are you interested in more education?: No Please select the resources that you would like help with: None Currently or been in a relationship where the following occur: No concerns reported THRIVE Score: 0 AUDIT C Alcohol Use Questionnaire (AUDIT-C) 1. How often do you have a drink containing alcohol?: 2-3 times a week 2. How many drinks containing alcohol do you have on a typical day when you are drinking?: 1 or 2 3. How often do you have six or more drinks on one occasion?: Never Total Score: 3 ESTEPHANIA-7 AMB Questionnaire ESTEPHANIA-7 Date ESTEPHANIA - 7 assessed: 05/26/25 Feeling nervous, anxious, or on edge: 0 = Not at all Not being able to stop or control worryin = Not at all Worrying too much about different things: 0 = Not at all Trouble relaxin = Not at all Being so restless that it is hard to sit still: 0 = Not at all Becoming easily annoyed or irritable: 0 = Not at all Feeling afraid as if something awful might happen: 0 = Not at all Total ESTEPHANIA-7 score (0-4 normal; 5-9 mild; 10-14 moderate; 15-21 severe): 0 Source: Developed by Drs. Frederic Valderrama, Elena Maldonado, Kyrie Arce and colleagues, with an educational jeremy from [employer]. Review of Systems Const Denies body aches, Denies chills, Denies fever(s), Denies headache(s) and Denies poor appetite Eyes Reports no additional complaints ENT Denies dysphagia, Denies dizziness, Denies headache(s) and Denies odynophagia Card Denies chest pain, Denies syncope, Denies edema, Denies irregular heart rhythm, Denies lightheadedness and Denies dyspnea Resp Denies cough and Denies dyspnea GI Denies dysphagia, Denies diarrhea, Denies nausea, Denies odynophagia and Denies vomiting Reports no additional complaints Musc Reports no additional complaints and Denies abnormal gait Skin/Breast Reports system reviewed and no additional complaints, except as documented Neuro Denies abnormal gait, Denies dizziness, Denies syncope and Denies headache(s) Psych Reports no additional complaints Physical exam (Primary Care) Vital Signs: Last Vital Signs Temp 97.1 F 07/06/25 13:09 Pulse 92 07/06/25 13:09 BP 122/84 07/06/25 13:09 Pulse Ox 92 07/06/25 13:09 Oxygen Delivery Method Room Air 07/06/25 13:09 BMI result Body Mass Index 24.5 Tobacco/Smoking Status: Tobacco use Status Tobacco use date assessed 07/06/25 07/06/25 13:15 Patient Tobacco Use Status Never used Tobacco 07/06/25 13:15 e-Cigarette/Vaping Use Never Used 07/06/25 13:15 PHQ-9: PHQ-9 Score PHQ-9: Total score 0 07/06/25 13:16 Depression Screening Interpretation: Negative Thrive Assessment: Date of Thrive Assessment Date Thrive assessed 05/26/25 07/06/25 13:15 Currently or been in a relationship where the following occur: No concerns reported Const General: cooperative, healthy appearing, comfortable and no acute distress Orientation/consciousness: patient oriented x3 HENMT Head: Yes normocephalic Ears: hearing grossly normal bilaterally General nose exam: Normal external nose present Eyes General: appearance normal, both eyes and all related structures Conjunctivae: conjunctivae normal Neck Neck: Yes full ROM and Yes no lymphadenopathy Resp Effort & Inspection: normal respiratory effort Auscultation: clear to auscultation bilaterally, no crackles, no rales, no rhonchi and no wheezes Cardio Rate: regular rate Rhythm: regular rhythm GI Palpation (GI): Soft to palpation, not firm, nontender, no guarding and not rigid Skin General skin exam: no rashes or lesions noted Neuro General: patient oriented x3 Gait exam (Neuro): Normal gait present Extrem General: Yes normal to inspection, Yes full ROM and No edema Psych Affect: normal affect Attitude: cooperative Insight: Good insight present (Psych) Judgement: Good judgement present (Psych) Coding Level of Care Code Est Pt Level 4 (51099) Diagnoses Pre-op exam Z01.818 Assessment & Plan Assessment & Plan (1) Pre-op exam: Code(s): Z01.818 - Encounter for other preprocedural examination Category: Medical Plan: Regarding preop clearance, the patient is at low-moderate risk for proposed surgery. Reviewed with the patient that no surgery is completely free of risk and that this examination is to assist the surgeon in reviewing informed consent. As modern cataract surgeries rarely cause any bleeding, she is advised that he should continue on her low dose Aspirin 81 mg QD but is advised that I will leave it up to the discretion of the assistant front desk manager performing the procedure if he is comfortable with patient being on or not for his eye surgery. Blood work evaluated. No further workup needed at this time and may proceed with the contemplated procedure. Thank you very much for letting me participate in the care of this patient Plan This note was constructed using voice recognition software. While every effort has been made to ensure accuracy and fish salter, still areas may have been included sometimes these areas may affect the content or meeting of the given symptoms. Total time spent caring for the patient today was 20 minutes. This includes time spent before the visit reviewing the chart, time spent during the visit, and time spent after the visit and documentation. Patient was informed and verbally consented to the use of an ambient scribe for clinic note documentation during this visit. Orders: Orders Complete Blood Count Auto Diff Today Z01.818 - Encounter for other preprocedural examination Comprehensive Met. Panel Today Z01.818 - Encounter for other preprocedural examination Hemoglobin A1c Today Z01.818 - Encounter for other preprocedural examination
[2025-07-06 13:09] VITALS: BP 122/84; PULSE 92; TEMP 36.2; O2SAT 92; BMI 24.5
== END 2025-07-06 13:38 | disposition home or self-care (01) ==
LOC: HO.HMCH 12:49
DX: Z01.818 Encounter for other preprocedural examination (principal)

== ENCOUNTER 2025-07-06 12:49 | Outpatient (REF) | payer OTHER, SELFPAY ==
[2025-07-06 13:50] LABS: MANUAL DIFF FLAG NO
[2025-07-06 15:00] LABS: Hematocrit 36.3 % (37.0-47.0); Hemoglobin 12.2 g/dl (12.0-16.0); Imm Gran Abs Auto 0.03 X10*3/uL (0.00-0.03); Imm Gran Pct Auto 0.3 % (0.0-0.4); Lymphocytes Absolute Auto 2.9 X10*3/uL (1.2-4.9); Mean Corpuscular HGB Conc 33.6 g/dl (31.0-35.0); Mean Corpuscular Hemoglobin 32.5 pg (27.0-33.0); Mean Corpuscular Volume 96.8 fL (80.0-98.0); NRBC Abs Auto 0.000 X10*3/uL (0.0-0.012); NRBC Pct Auto 0.0 /100WBC (0.0-0.2); Platelet Count 229 X10*3/uL (160-400); Red Blood Count 3.75 X10*6/uL (4.20-5.50); White Blood Count 8.9 X10*3/uL (4.8-10.8)
[2025-07-06 15:39] LABS: Alanine Aminotransferase 18 U/L (0-31); Albumin Level 4.6 g/dL (3.5-5.0); Alkaline Phosphatase 45 U/L (39-117); Anion Gap 12 (12-20); Aspartate Amino Transferase 24 U/L (5-31); Blood Urea Nitrogen 18 mg/dL (9-16); Calcium 9.6 mg/dL (8.4-10.2); Carbon Dioxide 27 mmol/L (22-29); Chloride 104 mmol/L (96-108); Estimated Glomerular Filt Rate 54; Potassium 4.0 mmol/L (3.3-5.1); Sodium 139 mmol/L (135-145); Total Protein 7.2 g/dL (6.5-8.0)
== END 2025-07-06 12:50 | disposition home or self-care (01) ==
LOC: HO.LAB 12:49
DX: Z01.818 Encounter for other preprocedural examination (principal); I10 Essential (primary) hypertension; E78.00 Pure hypercholesterolemia, unspecified; F41.1 Generalized anxiety disorder; Z13.1 Encounter for screening for diabetes mellitus
CPT/HCPCS: 36415; 80053; 83036; 85025